=== PATIENT | female | born 2000 | race Caucasian/White ===

== ENCOUNTER 2021-04-24 15:51 | Emergency (ER) | payer OTHER ==
[~2021-04-24] VITALS: Ht 154.9 cm; Wt 86.4 kg
[2021-04-24 18:17] LABS: APPEARANCE,URINE CLOUDY (CLEAR); BILIRUBIN,URINE NEGATIVE (NEGATIVE); GLUCOSE, URINE (UA) NEGATIVE (NEGATIVE); KETONES,URINE TRACE mg/dL (NEGATIVE); LEUKOCYTE ESTERASE ,URINE SMALL (NEGATIVE); NITRATE,URINE NEGATIVE (NEGATIVE); OCCULT BLOOD,URINE NEGATIVE (NEGATIVE); PROTEIN,URINE NEGATIVE (NEGATIVE)
[2021-04-24 18:42] LABS: RBC,URINE 0-2 /HPF (0-2)
[2021-04-24 18:43] LABS: BACTERIA,URINE Few /HPF (None Seen); SQUAMOUS EPITHELIAL CELL,UR Few /LPF (None Seen)
[2021-04-24 18:55] VITALS: BP 124/71
== END 2021-04-24 18:57 | disposition home or self-care (01) ==
LOC: EMS 15:56
DX: N39.0 Urinary tract infection, site not specified (principal)
CPT/HCPCS: 81001; 81002; 87086; 99283

== ENCOUNTER 2024-08-27 18:17 | Emergency (ER) | payer SELFPAY ==
[~2024-08-27] VITALS: Ht 154.9 cm; Wt 90.9 kg
[2024-08-27 18:27] VITALS: BP 128/81; PULSE 76; RESP 16; TEMP 98; O2SAT 98
== END 2024-08-27 20:06 | disposition home or self-care (01) ==
LOC: EMS 18:17
DX: S90.122A Contusion of left lesser toe(s) without damage to nail, initial encounter (principal); W22.03XA Walked into furniture, initial encounter; Y93.01 Activity, walking, marching and hiking; Y92.89 Other specified places as the place of occurrence of the external cause; Y99.8 Other external cause status
CPT/HCPCS: 99282; Z7502